=== PATIENT | male | born 1985 | race Caucasian/White ===

== ENCOUNTER 2016-11-17 13:41 | Emergency (ER) | payer OTHER ==
[~2016-11-17] VITALS: Ht 165.1 cm; Wt 75.0 kg
[~2016-11-17 13:41] MED LIST: TRAM-10 PO
[2016-11-17 13:48] VITALS: TEMP 36.9; Ht 165.1 cm; Wt 75.0 kg
[2016-11-17] MEDS ORDERED: KETOROLAC TROMETHAMINE 60 MG/2 ML VIAL IM STA (14:07)
--- NOTE | 2016-11-17 14:45 | DIAGNOSTIC IMAGING REPORT ---
L ANKLE MIN 3 VIEWS ROUTINE CLINICAL HISTORY: Left ankle pain status post trauma COMPARISON: None. DISCUSSION: No acute fractures or subluxations are visualized. IMPRESSION: No fractures or subluxations identified. Electronically signed by: Kyle Andersen M.D. 11/17/2016 2:44 PM Dictated Date/Time: 11/17/2016 2:43 PM
--- NOTE | 2016-11-17 15:00 | DIAGNOSTIC IMAGING REPORT ---
L FOOT MIN 3 VIEWS ROUTINE CLINICAL HISTORY: left foot pain s/p crush injury trauma. Pain. COMPARISON: None. DISCUSSION: Mild soft tissue edema. No acute bony abnormality. Cortical margins appear intact. There is mild soft tissue swelling. IMPRESSION: Mild soft tissue edema. No acute bony abnormality. The above report was generated using voice recognition software. It may contain grammatical, syntax or spelling errors. Electronically signed by: Alex Reese M.D. 11/17/2016 2:58 PM Dictated Date/Time: 11/17/2016 2:55 PM
--- NOTE | 2016-11-17 15:07 | EMERGENCY ROOM VISIT NOTE ---
ED Visit Note First contact with patient: 14:00 CHIEF COMPLAINT: Left ankle pain HISTORY OF PRESENT ILLNESS: This 31-year-old male patient presents to the emergency department, via wheelchair, approximately 8 hours after sustaining an injury to the left ankle and foot when a stack of plywood fell onto his left leg , and his foot got caught in between the rungs of the ladder. The patient complains of pain along the outside of the ankle, the anterior aspect of the ankle, the entire foot, and the anterior tibia. States he was minimally able to bear weight on the foot, but did have to use furniture as a crutch. He states he has been using an ice pack and elevating his foot since this morning, however the pain is not improving. He has taken nothing for pain. The patient rates the pain as sharp and achy, radiating up the leg, and 8/10. Constant pain , worse with movement, weight bearing, and the dependent position. No knee pain , the patient is able to move their toes, but this does significantly worsen his pain. No numbness or weakness of the foot, no laceration. The patient has not had a previous fracture to this ankle. The patient denies any other injury. REVIEW OF SYSTEMS: A 6 system review of systems was completed with positives and pertinent negatives listed in the HPI. ALLERGIES: None MEDICATIONS: None PMH: None SOCIAL HISTORY: The patient lives locally with family. He denies drug use. The patient admits to smoking one pack of cigarettes per day and drinking alcohol approximately twice weekly. PHYSICAL EXAM: Vital Signs: Reviewed Nurse's notes, vital signs stable. GENERAL : This is a 31-year-old white male, no acute distress, but appears in pain, well -developed, well-nourished. MENTAL STATUS: Alert, oriented to person place and time, and cooperative. MUSCULOSKELETAL: The left ankle is swollen and tender over the lateral malleolus, but the skin is intact and there is no ligamentous instability. There is fifth metatarsal tenderness. There is significant tenderness over the rest of the foot. There is no calf tenderness, but there is tenderness over the proximal tibia/fibula. There is no visual deformity. The foot and toes are warm and well-perfused. Dorsalis pedis pulse 2+. Sensation to pain and light touch is intact. Capillary refill less than 2 seconds. RADIOLOGY: X-Ray Left Tibia/Fibula: L TIBIA/FIBULA 2 VIEWS ROUTINE CLINICAL HISTORY: left tibial shaft pain s/p crush injury COMPARISON: None. DISCUSSION: No fractures are visualized. There are no erosive or destructive changes. IMPRESSION: No fractures identified. X-Ray Left Ankle: L ANKLE MIN 3 VIEWS ROUTINE CLINICAL HISTORY: Left ankle pain status post trauma COMPARISON: None. DISCUSSION: No acute fractures or subluxations are visualized. IMPRESSION: No fractures or subluxations identified. X-Ray Left Foot: L FOOT MIN 3 VIEWS ROUTINE CLINICAL HISTORY: left foot pain s/p crush injury trauma. Pain. COMPARISON: None. DISCUSSION: Mild soft tissue edema. No acute bony abnormality. Cortical margins appear intact. There is mild soft tissue swelling. IMPRESSION: Mild soft tissue edema. No acute bony abnormality. EMERGENCY DEPARTMENT COURSE: I examined the patient. He presented with a crush injury of his left ankle. The patient was given 60 mg Toradol IM and did note almost complete relief of his symptoms. X-rays of the and left tibia/ fibula, ankle, foot were reviewed by myself and read by radiology and reveal no acute fracture dislocation. Jose wrap was applied to the ankle under my direction and the position was satisfactory. Neurovascular status was rechecked and intact. The patient was instructed on the use of crutches. The patient was discharged home in good condition. DIFFERENTIAL DIAGNOSIS: Fracture, contusion, sprain, strain, compartment syndrome, and others DIAGNOSIS: Left ankle sprain, left lower leg contusion DISCHARGE INSTRUCTIONS: You were seen in the ED today for ankle/lower leg pain. X-Rays did rule out acute fracture. Ibuprofen(Motrin, Advil) may be used for fever or pain. Use 600mg every six hours as needed. Take with food. Avoid using more than 2400mg in a 24 hour period. Do not use 2400mg per day for more than three consecutive days without physician direction. Prolonged inappropriate use can lead to stomach upset or ulcers. (AND/OR) Acetaminophen(Tylenol) may be used for fever or pain. Use 1000mg every six hours as needed. Avoid using more than 3000mg in a 24 hour period. Ice compresses for 20 minutes at a time four times daily for 2-3 days. Use the crutches as instructed. Rest and elevate your injury. Do not get the JOSE wrap wet. If your splint feels excessively tight, you have worsening pain, develop numbness or tingling, or your digits appear blue, loosen the jose wrap. If your symptoms are not quickly relieved return to the ER for re-evaluation. Return to the ER immediately for any numbness, tingling, severe pain, extreme swelling in the extremity or as needed. Call [facility], [phone], if no improvement in 3-5 days, to arrange follow up for your injury. Follow-up with your primary care physician or Worker's Compensation provider in 2 to 3 days for a recheck of your current condition. Current/Historical Medications No Active Prescriptions or Reported Meds Allergies Coded Allergies: No Known Allergies (Verified , 11/17/16) Vital Signs Date Time Temp Pulse Resp B/P (MAP) Pulse Ox O2 Delivery O2 Flow Rate FiO2 11/17/16 16:41 59 15 123/79 99 11/17/16 15:59 59 15 123/79 99 Room Air 11/17/16 13:48 36.9 69 16 137/83 97 Room Air Medications Administered Medications (Trade) Dose Ordered Sig/Iris Route Start Time Stop Time Status Last Admin Dose Admin Ketorolac Tromethamine (Toradol Inj) 60 mg NOW STAT IM 11/17/16 14:07 11/17/16 14:08 DC 11/17/16 14:12 60 MG Departure Information Impression Primary Impression: Left ankle sprain Additional Impression: Contusion of left lower leg, initial encounter Dispostion Home / Self-Care Condition GOOD Prescriptions No Active Prescriptions or Reported Meds Referrals No Doctor, Assigned (PCP) Jonny العلي M.D. Patient Instructions ED Contusion Lower Ext, ED Sprain Ankle, [facility] Additional Instructions You were seen in the ED today for ankle/lower leg pain. X-Rays did rule out acute fracture. Ibuprofen(Motrin, Advil) may be used for fever or pain. Use 600mg every six hours as needed. Take with food. Avoid using more than 2400mg in a 24 hour period. Do not use 2400mg per day for more than three consecutive days without physician direction. Prolonged inappropriate use can lead to stomach upset or ulcers. (AND/OR) Acetaminophen(Tylenol) may be used for fever or pain. Use 1000mg every six hours as needed. Avoid using more than 3000mg in a 24 hour period. Ice compresses for 20 minutes at a time four times daily for 2-3 days. Use the crutches as instructed. Rest and elevate your injury. Do not get the JOSE wrap wet. If your splint feels excessively tight, you have worsening pain, develop numbness or tingling, or your digits appear blue, loosen the jose wrap. If your symptoms are not quickly relieved return to the ER for re-evaluation. Return to the ER immediately for any numbness, tingling, severe pain, extreme swelling in the extremity or as needed. Call [facility], [phone], if no improvement in 3-5 days, to arrange follow up for your injury. Follow-up with your primary care physician or Worker's Compensation provider in 2 to 3 days for a recheck of your current condition. Work Instructions Return To Work: 2 days Problem Qualifiers Primary Impression: Left ankle sprain Encounter type: initial encounter Involved ligament of ankle: unspecified ligament Qualified Codes: S93.402A - Sprain of unspecified ligament of left ankle, initial encounter
--- NOTE | 2016-11-17 15:57 | DIAGNOSTIC IMAGING REPORT ---
L TIBIA/FIBULA 2 VIEWS ROUTINE CLINICAL HISTORY: left tibial shaft pain s/p crush injury COMPARISON: None. DISCUSSION: No fractures are visualized. There are no erosive or destructive changes. IMPRESSION: No fractures identified. Electronically signed by: Kyle Andersen M.D. 11/17/2016 3:56 PM Dictated Date/Time: 11/17/2016 3:55 PM
[2016-11-17 16:41] VITALS: BP 123/79; PULSE 59; O2SAT 99
== END 2016-11-17 16:42 | disposition home or self-care (01) ==
LOC: C.EDB 13:42 → C.EDD 16:42
DX: S93.402A Sprain of unspecified ligament of left ankle, initial encounter (principal); S80.12XA Contusion of left lower leg, initial encounter; W23.0XXA Caught, crushed, jammed, or pinched between moving objects, initial encounter; Y99.0 Civilian activity done for income or pay; F17.210 Nicotine dependence, cigarettes, uncomplicated